=== PATIENT | female | born 1990 | race Caucasian/White ===

== ENCOUNTER 2018-08-26 12:56 | Day surgery (SDC) | payer MEDICAID, SELFPAY ==
[2018-08-26 14:07] VITALS: BMI 26.4
--- NOTE | 2018-08-26 16:42 | PRG ---
DATE OF SERVICE: 08/26/2018 [employer] OFFBEARER: Dr. Sandra Sow. CHIEF COMPLAINT: Leakage of fluid. HISTORY OF PRESENT ILLNESS: The patient is a 28-year-old, G2, P1 female, with an intrauterine at 39 weeks and 5 days, who reports today that she had some thick mucousy bloody discharge this morning and has come in to be evaluated to see if she has rupture of membranes. The patient denies any sensation of uterine contraction. She denies fall or trauma. She denies any recent illness, fever, headache, chest pain, shortness of breath, nausea, vomiting, or diarrhea. She does report constipation. Denies any new rashes. She does report she has had a little bit of spotting. Denies any urinary urgency. PAST MEDICAL HISTORY: Negative. PAST SURGICAL HISTORY: Negative. ALLERGIES: NO KNOWN DRUG ALLERGIES. SOCIAL HISTORY: Denies drug, alcohol, or tobacco use. OB HISTORY: She has had 1 term vaginal delivery. REVIEW OF SYSTEMS: Per history of present illness. OB LABS: Unavailable at the time of dictation, but we do have that she is GBS negative. Her blood type is A positive. She is rubella immune. HIV negative. All in the hospital medical record. PHYSICAL EXAMINATION: VITAL SIGNS: Blood pressure is 128/80, pulse of 83, respiratory rate of 18. Weight 154, height 5 feet 4 inches. GENERAL: The patient appears to be in no acute distress. She is alert, oriented, cooperative, and pleasant to interact with. HEAD: Normocephalic, atraumatic. LUNGS: Clear to auscultation bilaterally. HEART: Has a regular rate and rhythm. ABDOMEN: Soft and gravid. EXTREMITIES: Nontender. Nonedematous. : Vulva was without masses, lesions, or erythema. Vagina is moist. No pulling visible. Cervix is visibly closed. There does appear to be a discharge on the cervix, that is granular. Cervical exam is 1 and 30% effaced and high. heart tracing performed for leakage of fluid. Baseline is noted to be in the 120s with moderate long-term variability, positive 15 x 15 accelerations. Tocometer does not show any consistent contraction pattern. ASSESSMENT AND PLAN: The patient is a 28-year-old, G2, P1, with an intrauterine at 39 weeks and 5 days, followed by Dr. Sow. The patient came in with concerns of leakage of fluid. There is no evidence of rupture of membranes on physical exam. The patient does have a scheduled induction date later this week. She is being discharged to home with term precautions. Her fetus has a category 1 tracing and reactive NST. Job ID: [id number]
== END 2018-08-26 15:44 | disposition home or self-care (01) ==
LOC: L&D/OP 12:56
PROVIDERS: ATTEND Student in an Organized Health Care Education/Training Program
DX: O99.89 Other specified diseases and conditions complicating pregnancy, childbirth and the puerperium (principal); N89.8 Other specified noninflammatory disorders of vagina; Z3A.39 39 weeks gestation of pregnancy; Z79.899 Other long term (current) drug therapy
CPT/HCPCS: 99283

== ENCOUNTER 2018-08-30 03:19 | Inpatient (IN) | payer MEDICAID, SELFPAY ==
[2018-08-30] MEDS ORDERED: Diphenoxylate HCl/Atropine Tablet PO PRN (03:45)
[2018-08-30] MEDS ORDERED: Lidocaine 1% (PF) 30 ML VIAL SC PRN (03:45)
[2018-08-30] MEDS ORDERED: Carboprost 250 MCG/ML AMP IM PRN (03:45)
[2018-08-30] MEDS ORDERED: Methylergonovine 0.2 MG/ML VIAL IM PRN (03:45)
[2018-08-30] MEDS ORDERED: Butorphanol Tartrate 1 MG/ML VIAL SLOW IVP PRN (03:45)
[2018-08-30] MEDS ORDERED: Misoprostol 200 MCG TAB PR PRN (03:45)
[2018-08-30] MEDS ORDERED: Ondansetron PF 4 MG/2 ML Vial IVP PRN ×3 (03:45→12:27)
[2018-08-30] MEDS ORDERED: HYDROcodone/Acetaminophen 5/325 mg Tablet PO PRN ×3 (03:45→12:27)
[2018-08-30] MEDS ORDERED: NS / Oxytocin 40 units/1000ml 1,000 ML IV PRN (03:45)
[2018-08-30] MEDS ORDERED: Ibuprofen 800 MG TAB PO PRN (03:45)
[2018-08-30] MEDS ORDERED: NS w/ Oxytocin 10 units 500 ML IV SCH (03:45)
[2018-08-30] MEDS ORDERED: Acetaminophen 500 MG TAB PO PRN (03:45)
[2018-08-30] MEDS ORDERED: Promethazine HCl 25 MG/ML VIAL IM PRN ×2 (03:45→08:31)
[2018-08-30 04:03] VITALS: BMI 27.3
[2018-08-30] MEDS: Lactated Ringer's 1,000 ML IV SCH ×3 (04:15→12:46)
[2018-08-30 04:32] LABS: Hemoglobin 14.2 g/dL (12.0-16.0); Mean Corpuscular HGB CONC 35.5 g/dL (32.0-36.0); Mean Corpuscular Hemoglobin 32.9 pg (27.0-31.0); Mean Corpuscular Volume 92.7 fL (78.0-98.0); Platelet Count 148 thou/uL (130-400); RBC Distribution Width 11.8 % (11.5-14.5); White Blood Cell (WBC) Count 11.1 thou/uL (4.8-10.8)
[2018-08-30 05:02] LABS: HBSAg Index 0.31 S/CO (0-0.99); Hep B Surf Ag Non-Reactive S/CO (NonReactive)
[2018-08-30] MEDS ORDERED: Fentanyl 4 mcg/Bup 0.1% Cadd 100 ML ONE (07:08)
[2018-08-30 07:26] LABS: Syphilis Antibody Nonreactive (Nonreactive); Syphilis Antibody Index 0.03 S/CO (<1.00 Non-Reactive)
--- NOTE | 2018-08-30 08:02 | PDOC.LDHP ---
Labor and Delivery H&P Chief complaint: contractions HPI: 28yo at 40w2d by LMP c/w 7w sono for IOL, c/o painful contractions. Current gestational age (weeks): 40 Due date: 08/28/18 Dating criteria: last menstrual period Grav: 2 Para: 1 Current complications: none Abnormal US findings: No Past Medical History: denies Current medications: pre-vasu vitamins Previous surgical history: none Allergies/Adverse Reactions: Allergies Allergy/AdvReac Type Severity Reaction Status Date / Time No Known Allergies Allergy Unverified 08/30/18 03:54 Social history: none - Physical Exam Vital signs reviewed and normal: yes General: NAD, breathing through contractions Heart: RRR Lungs: CTAB Abdomen: gravid Extremeties: no edema FHT: category 1 [place] contractions every: 3-4min - OB Labs Blood type: B RH: positive Antibody Screen: negative HIV: negative RPR: negative HEPSAg: negative 1 hour GCT: negative GBS: negative Urine drug screen: negative Rubella: immune - Assessment L&D Assessment: term patient in labor - Plan Plan: admit to L&D, labor augmentation if indicated, informed consent obtained, anesthesia consult for pain management
[2018-08-30] MEDS ORDERED: Acetaminophen 325 MG TAB PO PRN (08:31)
[2018-08-30] MEDS ORDERED: Lactated Ringer's 500 ML IV PRN (08:31)
[2018-08-30] MEDS ORDERED: Naloxone HCl 0.4 mg/ml Vial IVP PRN ×2 (08:31)
[2018-08-30] MEDS ORDERED: ePHEDrine/0.9% NaCl/PF SYRINGE 50 mg/10 ml SLOW IVP PRN (08:31)
[2018-08-30] MEDS ORDERED: Eucerin (Mineral Oil/Petrolatum,White) 30 gm Jar TOP PRN (08:31)
[2018-08-30] MEDS ORDERED: diphenhydrAMINE 50 MG/ML VIAL IVP PRN (08:31)
[2018-08-30] MEDS ORDERED: Fentanyl 4 mcg/Bupivacaine 0.1% Cassette 100 ML EPIDURAL SCH (08:45)
[2018-08-30] MEDS ORDERED: Communication Order-Pharmacy FS SCH (08:45)
[2018-08-30] MEDS ORDERED: ePHEDrine/0.9% NaCl/PF SYRINGE 50 mg/10 ml ONE (10:00)
[2018-08-30] MEDS ORDERED: Bupivacaine/Epinephrine 0.25% 30 ML VIAL ONE (10:00)
--- NOTE | 2018-08-30 11:52 | PDOC.OPDEL ---
OB Operative/Delivery Note Delivery Dr/Surgeon: Juanjose Assist: n/a Pre-Delivery Diagnosis: active labor Procedure/Post Delivery Dx: spontaneous vaginal delivery Weeks gestation: 40 Anesthesia: epidural - Findings A Sex: female - 1 min: 8 - 5 min: 9 - Additional Findings/Plan Placenta delivered: spontaneous Repaired Obstetrical Laceration: 1st degree (repaired with 2-0 vicryl for hemostasis) Estimated blood loss: 200cc Post delivery plan: routine recovery
[2018-08-30] MEDS ORDERED: diphenhydrAMINE 25 MG CAP PO PRN (12:27)
[2018-08-30] MEDS ORDERED: Preparation H Ointment 28 GM TUBE PR PRN (12:27)
[2018-08-30] MEDS ORDERED: Milk Of Magnesia 30 ML UDCUP PO PRN (12:27)
[2018-08-30] MEDS ORDERED: Benzocaine/Menthol 20-0.5% 60 ML CAN TOP PRN (12:27)
[2018-08-30] MEDS ORDERED: NS / Oxytocin 40 units/1000ml 1,000 ML IV SCH (12:27)
[2018-08-30] MEDS ORDERED: Bisacodyl 10 MG SUPP PR PRN (12:27)
[2018-08-30] MEDS ORDERED: Lanolin Ointment 7 GM TUBE TOP PRN (12:27)
[2018-08-30] MEDS ORDERED: Adacel (T-DAP) 0.5 ML SYRINGE IM ONE (12:27)
[2018-08-30] MEDS: Ferrous Sulfate 325 MG TAB PO SCH (14:46)
[2018-08-30] MEDS: Ibuprofen 800 MG TAB PO SCH ×2 (14:55→20:09)
[2018-08-30] MEDS: Docusate Calcium (SURFAK) 240 MG CAP PO SCH (20:09)
[2018-08-31] MEDS: Ibuprofen 800 MG TAB PO SCH ×2 (06:25→15:44)
[2018-08-31 08:15] VITALS: BP 99/54; TEMP 98
[2018-08-31] MEDS ORDERED: Prenatal Vitamin 1 TAB PO SCH (09:00)
[2018-08-31] MEDS: Docusate Calcium (SURFAK) 240 MG CAP PO SCH (10:13)
[2018-08-31] MEDS: Ferrous Sulfate 325 MG TAB PO SCH (10:13)
--- NOTE | 2018-08-31 13:03 | PDOC.PP ---
Post Progress Note Post Day #: 1 PO intake tolerated: yes Flatus: yes Ambulation: yes Vital Signs (12 hours) Temp Pulse Resp BP Pulse Ox 08/31/18 08:00 98 F 70 18 99/54 L 100 Weight Weight 154 lb 5.177 oz - Physical Examination General: NAD Cardiovascular: RRR Respiratory: non-labored breathing Abdominal: no distention, appropriately TTP Fundus firm & at: umb Extremities: negative homans (B) Skin: no rash Neurological: no gross focal deficits Psychiatric: normal affect Result Diagrams: 08/30/18 04:26 Additional Labs: Post Labs Blood Type A POSITIVE 08/30/18 04:26 Hep Bs Antigen Non-Reactive S/CO (NonReactive) 08/30/18 04:26 - Assessment/Plan PPD1 s/p TSVD VSSAF Doing well lochia < menses Breast & bottlefeeding Rh pos RImm DC home FU 6wk
== END 2018-08-31 17:35 | disposition home or self-care (01) | DRG 807 ==
LOC: L&D 03:19 → 3SE 11:45
PROVIDERS: ADMIT Student in an Organized Health Care Education/Training Program; ATTEND Student in an Organized Health Care Education/Training Program
PROC: 10E0XZZ Delivery of Products of Conception, External Approach (ICD-10-PCS; principal; 2018-08-30)
PROC: 0HQ9XZZ Repair Perineum Skin, External Approach (ICD-10-PCS; 2018-08-30)
DX: O70.0 First degree perineal laceration during delivery (principal); Z37.0 Single live birth; Z3A.40 40 weeks gestation of pregnancy
CPT/HCPCS: 51702; 85027; 86780; 86850; 86900; 86901; 87340; 90715; J0595; J2001

== ENCOUNTER 2018-09-02 11:42 | Emergency (ER) | payer SELFPAY | END 2018-09-02 14:17 | disposition home or self-care (01) | LOC: ERS 11:42 | DX: O99.355 Diseases of the nervous system complicating the puerperium (principal); G97.1 Other reaction to spinal and lumbar puncture | CPT/HCPCS: 99283 ==

== ENCOUNTER 2018-09-03 13:38 | Emergency (ER) | payer SELFPAY | END 2018-09-03 16:17 | disposition home or self-care (01) | LOC: ERS 13:38 | DX: O89.4 Spinal and epidural anesthesia-induced headache during the puerperium (principal) | CPT/HCPCS: 62272; 99284 ==

== ENCOUNTER 2020-05-08 12:01 | Outpatient (CLI) | payer MEDICAID, OTHER ==
[2020-05-09 12:22] LABS: SARS-CoV-2 MS2 Positive; SARS-CoV-2 N Gene Negative; SARS-CoV-2 S Gene Negative; SARS-CoV-2 by NAA Not Detected (NotDetected); SARS-CoV-2 orf1ab Negative
== END 2020-05-08 12:02 | disposition home or self-care (01) ==
LOC: LABSCS 12:01
PROVIDERS: ATTEND Obstetrics & Gynecology
DX: Z20.828 Contact with and (suspected) exposure to other viral communicable diseases (principal)
CPT/HCPCS: 87635; U0003

== ENCOUNTER 2020-05-12 05:30 | Inpatient (IN) | payer MEDICAID, SELFPAY ==
[2020-05-12 06:42] VITALS: BMI 30.4
[2020-05-12] MEDS ORDERED: HYDROcodone/Acetaminophen 5/325 mg Tablet PO PRN ×4 (06:53→14:14)
[2020-05-12] MEDS ORDERED: NS / Oxytocin 40 units/1000ml 1,000 ML IV PRN (06:53)
[2020-05-12] MEDS ORDERED: Ibuprofen 800 MG TAB PO PRN (06:53)
[2020-05-12] MEDS ORDERED: Lidocaine 1% (PF) 30 ML VIAL SC PRN (06:53)
[2020-05-12] MEDS ORDERED: NS w/ Oxytocin 10 units 500 ML ONE (06:58)
[2020-05-12] MEDS ORDERED: NS w/ Oxytocin 10 units 500 ML IV SCH ×2 (07:00)
[2020-05-12 07:20] LABS: Hemoglobin 13.5 g/dL (12.0-16.0); Mean Corpuscular HGB CONC 35.6 g/dL (32.0-36.0); Mean Corpuscular Hemoglobin 33.3 pg (27.0-31.0); Mean Corpuscular Volume 93.3 fL (78.0-98.0); Mean Platelet Volume 10.6 fL (7.4-10.4); Platelet Count 132 thou/uL (130-400); RBC Distribution Width 12.4 % (11.5-14.5); Red Blood Cell (RBC) Count 4.06 mill/uL (4.20-5.40); White Blood Cell (WBC) Count 8.6 thou/uL (4.8-10.8)
[2020-05-12 08:00] LABS: Syphilis Antibody Nonreactive (Nonreactive); Syphilis Antibody Index 0.02 S/CO (<1.00 Non-Reactive)
[2020-05-12] MEDS ORDERED: Butorphanol Tartrate 1 MG/ML VIAL SLOW IVP SCH (08:00)
[2020-05-12 08:03] LABS: HBSAg Index 0.14 S/CO (0-0.99); Hep B Surf Ag Non-Reactive S/CO (NonReactive)
[2020-05-12] MEDS ORDERED: Fentanyl 4 mcg/Bup 0.1% Cadd 100 ML ONE (09:06)
[2020-05-12] MEDS ORDERED: Naloxone HCl 0.4 mg/ml Vial IVP PRN ×2 (09:38)
[2020-05-12] MEDS ORDERED: Acetaminophen 325 MG TAB PO PRN (09:38)
[2020-05-12] MEDS ORDERED: Promethazine HCl 25 MG/ML VIAL IM PRN (09:38)
[2020-05-12] MEDS ORDERED: EPHEDRINE 25 MG/5 ML SYRINGE SLOW IVP PRN (09:38)
[2020-05-12] MEDS ORDERED: Lactated Ringer's 500 ML IV PRN (09:38)
[2020-05-12] MEDS ORDERED: diphenhydrAMINE 50 MG/ML VIAL IVP PRN (09:38)
[2020-05-12] MEDS ORDERED: Ondansetron PF 4 MG/2 ML Vial IVP PRN ×2 (09:38→14:14)
[2020-05-12] MEDS ORDERED: Communication Order-Pharmacy FS SCH (09:45)
[2020-05-12] MEDS ORDERED: Fentanyl 4 mcg/Bupivacaine 0.1% Cassette 100 ML EPIDURAL SCH (09:45)
[2020-05-12] MEDS ORDERED: Lidocaine 1% (PF) 30 ML VIAL ONE (10:56)
[2020-05-12] MEDS ORDERED: NS / Oxytocin 40 units/1000ml 1,000 ML ONE (10:56)
--- NOTE | 2020-05-12 12:03 | PDOC.OPDEL ---
OB Operative/Delivery Note Delivery Dr/Surgeon: Rajendra Pre-Delivery Diagnosis: elective induction Procedure/Post Delivery Dx: spontaneous vaginal delivery Weeks gestation: 40 Anesthesia: epidural - Findings A Sex: female - Additional Findings/Plan Placenta delivered: spontaneous Repaired Obstetrical Laceration: 1st degree Estimated blood loss: 75ml Post delivery plan: routine recovery
[2020-05-12] MEDS ORDERED: Bupivacaine 0.25% HCL 30 ML VIAL ONE (13:17)
[2020-05-12] MEDS ORDERED: Benzocaine-Menthol 82.5 ML CAN TOP PRN (14:14)
[2020-05-12] MEDS ORDERED: hydrALAZINE 20 MG/ML VIAL SLOW IVP PRN (14:14)
[2020-05-12] MEDS ORDERED: Bisacodyl 10 MG SUPP PR PRN (14:14)
[2020-05-12] MEDS ORDERED: Milk Of Magnesia 30 ML UDCUP PO PRN (14:14)
[2020-05-12] MEDS ORDERED: NS / Oxytocin 40 units/1000ml 1,000 ML IV SCH (14:14)
[2020-05-12] MEDS ORDERED: Lanolin Ointment 7 GM TUBE TOP PRN (14:14)
[2020-05-12] MEDS: Ibuprofen 800 MG TAB PO SCH (18:27)
[2020-05-12] MEDS: Ferrous Sulfate 325 MG TAB PO SCH (18:29)
[2020-05-13] MEDS: Docusate Calcium (SURFAK) 240 MG CAP PO SCH ×2 (01:13→08:38)
[2020-05-13] MEDS: Ibuprofen 800 MG TAB PO SCH ×3 (01:13→14:21)
[2020-05-13] MEDS: Ferrous Sulfate 325 MG TAB PO SCH (07:13)
[2020-05-13 07:49] VITALS: BP 102/57; TEMP 98.1
--- NOTE | 2020-05-13 08:43 | PDOC.PP ---
Post Progress Note Post Day #: 1 Subjective: doing well, latching well, minimal lochia PO intake tolerated: yes Flatus: yes Ambulation: yes Vital Signs (12 hours) Temp Pulse Resp BP 05/13/20 07:46 98.1 F 74 14 102/57 L 05/13/20 06:12 98.5 F 70 16 105/55 L 05/13/20 01:08 98.9 F 80 16 104/62 Weight Weight 172 lb - Physical Examination General: NAD Respiratory: non-labored breathing Abdominal: no distention Fundus firm & at: below umb Psychiatric: A&Ox3, normal affect Result Diagrams: 05/12/20 07:12 Additional Labs: Post Labs Blood Type A POSITIVE 05/12/20 07:12 Hep Bs Antigen Non-Reactive S/CO (NonReactive) 05/12/20 07:12 (1) Term delivered Code(s): O80 - ENCOUNTER FOR FULL-TERM UNCOMPLICATED DELIVERY Status: Acute - Assessment/Plan PPD 1 doing well, plan for DC today if baby DC.
[2020-05-13] MEDS ORDERED: Adacel (T-DAP) 0.5 ML SYRINGE IM ONE (09:00)
[2020-05-13] MEDS ORDERED: Prenatal Vitamin 1 TAB PO SCH (09:00)
== END 2020-05-13 15:40 | disposition home or self-care (01) | DRG 807 ==
LOC: L&D 05:59 → 3SE 15:54
PROVIDERS: ADMIT Obstetrics & Gynecology; ATTEND Obstetrics & Gynecology
PROC: 10E0XZZ Delivery of Products of Conception, External Approach (ICD-10-PCS; principal; 2020-05-12)
PROC: 0HQ9XZZ Repair Perineum Skin, External Approach (ICD-10-PCS; 2020-05-12)
PROC: 3E033VJ Introduction of Other Hormone into Peripheral Vein, Percutaneous Approach (ICD-10-PCS; 2020-05-12)
DX: O70.0 First degree perineal laceration during delivery (principal); Z37.0 Single live birth; Z3A.40 40 weeks gestation of pregnancy
CPT/HCPCS: 36415; 51702; 85027; 86780; 86850; 86900; 86901; 87340; J2001; J2590; S0020